=== PATIENT | male | born 1960 | race Caucasian/White ===

== ENCOUNTER 2019-11-24 10:06 | Inpatient (IN) | payer OTHER ==
[~2019-11-24] VITALS: Ht 172.7 cm; Wt 77.1 kg
[2019-11-24] MEDS ORDERED: NIFEDIPINE20 MG PO (10:27)
[2019-11-24] MEDS ORDERED: BENICAR5 MG PO (10:27)
[2019-11-24] MEDS ORDERED: ACTOS15 MG PO (10:27)
[2019-11-24] MEDS ORDERED: LIPITOR40 M1 PO (10:27)
[2019-11-24] MEDS ORDERED: MICROZIDE12.5 MG PO (10:28)
[2019-11-24] MEDS ORDERED: JANUMET 50-5001 EACH PO (10:28)
[2019-12-08] MEDS ORDERED: MEDROLPACK PO (14:13)
[2019-12-08] MEDS ORDERED: PERCOCET 5-3251 EACH PO (14:13)
[2019-12-08] MEDS ORDERED: COLACE100 MG PO (14:13)
[2019-12-08] MEDS ORDERED: DIAZEPAM10 MG PO (14:13)
== END 2019-12-09 16:04 | disposition home or self-care (01) | DRG 454 ==
LOC: SURG 12-08 05:00 → O/R 12-08 05:00 → SURG 12-08 15:16 → O/R 12-08 17:49 → SURG 12-08 18:13
PROVIDERS: ADMIT Orthopaedic Surgery Orthopaedic Surgery of the Spine
PROC: 0RG2071 Fusion of 2 or more Cervical Vertebral Joints with Autologous Tissue Substitute, Posterior Approach, Posterior Column, Open Approach (ICD-10-PCS; 2019-12-08)
PROC: 0RT30ZZ Resection of Cervical Vertebral Disc, Open Approach (ICD-10-PCS; 2019-12-08)
PROC: 07DS3ZZ Extraction of Vertebral Bone Marrow, Percutaneous Approach (ICD-10-PCS; 2019-12-08)
PROC: 0RG20A0 Fusion of 2 or more Cervical Vertebral Joints with Interbody Fusion Device, Anterior Approach, Anterior Column, Open Approach (ICD-10-PCS; principal; 2019-12-08 10:00)
DX: M50.021 Cervical disc disorder at C4-C5 level with myelopathy (principal); M47.12 Other spondylosis with myelopathy, cervical region; I10 Essential (primary) hypertension; E11.9 Type 2 diabetes mellitus without complications; Z79.4 Long term (current) use of insulin

== ENCOUNTER 2022-07-31 11:45 | Inpatient (IN) | payer OTHER ==
[~2022-07-31] VITALS: Ht 172.7 cm; Wt 75.7 kg
[~2022-07-31 11:45] MED LIST: ACTOS15 MG PO; BENICAR5 MG PO; COLACE100 MG PO; DIAZEPAM10 MG PO; JANUMET 50-5001 EACH PO; LIPITOR40 M1 PO; MEDROLPACK PO; MICROZIDE12.5 MG PO; NIFEDIPINE20 MG PO; PERCOCET 5-3251 EACH PO
[2022-08-06] MEDS ORDERED: COLACE100 MG PO (09:33)
[2022-08-06] MEDS ORDERED: MEDROLPACK PO (09:33)
[2022-08-06] MEDS ORDERED: NEURONTIN800 MG PO (09:33)
[2022-08-06] MEDS ORDERED: AMOX-CLAV 875-1 EACH PO (09:33)
[2022-08-06] MEDS ORDERED: PERCOCET 5-3251 EACH PO (09:33)
== END 2022-08-08 13:13 | disposition home or self-care (01) | DRG 455 ==
LOC: PED 08-06 07:46 → O/R 08-06 07:46 → SURH 08-06 11:45 → PED 08-06 13:46 → SURH 08-06 14:30 → PED 08-06 14:48
PROVIDERS: ADMIT Orthopaedic Surgery Orthopaedic Surgery of the Spine; ATTEND Orthopaedic Surgery Orthopaedic Surgery of the Spine
PROC: 0SG1071 Fusion of 2 or more Lumbar Vertebral Joints with Autologous Tissue Substitute, Posterior Approach, Posterior Column, Open Approach (ICD-10-PCS; 2022-08-06)
PROC: 0ST20ZZ Resection of Lumbar Vertebral Disc, Open Approach (ICD-10-PCS; 2022-08-06)
PROC: 0QH004Z Insertion of Internal Fixation Device into Lumbar Vertebra, Open Approach (ICD-10-PCS; 2022-08-06)
PROC: 0QB30ZZ Excision of Left Pelvic Bone, Open Approach (ICD-10-PCS; 2022-08-06)
PROC: 07DR3ZZ Extraction of Iliac Bone Marrow, Percutaneous Approach (ICD-10-PCS; 2022-08-06)
PROC: 4A12X4Z Monitoring of Cardiac Electrical Activity, External Approach (ICD-10-PCS; 2022-08-06)
PROC: XRGC0R7 Fusion of 2 or more Lumbar Vertebral Joints using Custom-Made Anatomically Designed Interbody Fusion Device, Open Approach, New Technology Group 7 (ICD-10-PCS; principal; 2022-08-06 14:30)
DX: M41.86 Other forms of scoliosis, lumbar region (principal); M48.062 Spinal stenosis, lumbar region with neurogenic claudication; Z20.822 Contact with and (suspected) exposure to COVID-19; I10 Essential (primary) hypertension; E11.9 Type 2 diabetes mellitus without complications; Z79.84 Long term (current) use of oral hypoglycemic drugs